=== PATIENT | male | born 1995 | race Caucasian/White ===

== ENCOUNTER 2022-06-28 08:14 | Emergency (ER) | payer OTHER ==
[~2022-06-28] VITALS: Ht 182.9 cm; Wt 79.4 kg
== END 2022-06-28 13:50 | disposition home or self-care (01) ==
LOC: ER 08:14
DX: R31.9 Hematuria, unspecified (principal)

== ENCOUNTER 2022-08-24 07:13 | Outpatient (CLI) | payer OTHER | END 2022-08-24 07:15 | disposition home or self-care (01) | LOC: SONOGRAMA 07:13 | PROVIDERS: ATTEND Family Medicine | DX: E80.6 Other disorders of bilirubin metabolism (principal) ==

== ENCOUNTER 2022-08-29 22:16 | Emergency (ER) | payer OTHER ==
[~2022-08-29] VITALS: Ht 182.9 cm; Wt 72.6 kg
[2022-08-30] MEDS ORDERED: CEPHALEXIN500 MG PO (03:02)
== END 2022-08-30 03:06 | disposition home or self-care (01) ==
LOC: ER 22:16
DX: J02.9 Acute pharyngitis, unspecified (principal)

== ENCOUNTER → 2023-10-22 | Emergency (ER) | payer OTHER ==
[~2023-10-22] VITALS: Ht 172.7 cm; Wt 66.7 kg
[~2023-10-22] MED LIST: CEPHALEXIN500 MG PO; KETOROLAC TROMETHAMINE 30 MG VIAL IM ONE
== END | disposition home or self-care (01) ==
LOC: ER 18:53
DX: R21 Rash and other nonspecific skin eruption (principal)
CPT/HCPCS: 96372; 99282; J1885